=== PATIENT | female | born 1970 | race Caucasian/White ===

== ENCOUNTER 2017-01-02 13:51 | Inpatient (IN) | payer OTHER ==
[~2017-01-02] VITALS: Ht 157.5 cm; Wt 59.0 kg
[~2017-01-02 13:51] MED LIST: APIDRA100 UNIT/1 SQ; ASPIR 8181 MG PO; FLEXERIL 10 MG10 MG PO; FLOVENT DISKUS50 MCG INH; IBUPROFEN800 MG PO; IMDUR ER TAB 6060 MG PO; KLONOPIN TAB 00.5 MG PO; LEVEMIR100 UNIT/1 SC; LEVEMIR100 UNIT/1 SQ; METFORMIN HCL500 MG PO; MONTELUKAST SOD10 MG PO; NEURONTIN800 MG PO; NITRO SL; NORCO 5-325 TA1 EACH PO; NOVOLOG 10100 UNITS/ SC; NOVOLOG 10100 UNITS1 INJ; PROTONIX40 MG PO; PROVENTIL HFA 61 INH INH; SYMBICORT 160-1 INHA INH; VENTOLIN/PROVE0.5 ML INH; ZYRTEC10 M3 PO
[2017-01-02 15:30] LABS: HEMOGLOBIN 16.2 gm/dl (12.3-15.3); RED BLOOD COUNT 4.98 M/UL (4.00-5.10); WHITE BLOOD COUNT 18.2 K/UL (4.5-11.0)
[2017-01-02] MEDS ORDERED: ASPIR 8181 MG PO (20:17)
[2017-01-02] MEDS ORDERED: APIDRA100 UNIT/1 SQ (20:18)
[2017-01-02] MEDS ORDERED: ZYRTEC10 M3 PO (20:18)
[2017-01-02] MEDS ORDERED: SYMBICORT 160-1 INHA INH (20:19)
[2017-01-02] MEDS ORDERED: VENTOLIN HFA 66.7 GM INH (20:20)
[2017-01-02] MEDS ORDERED: FLONASE 0.05% N16 GM (20:21)
[2017-01-02] MEDS ORDERED: METFORMIN HCL500 MG PO (20:21)
[2017-01-02] MEDS ORDERED: IMDUR ER TAB 6060 MG PO (20:22)
[2017-01-03] MEDS ORDERED: LANTUS INS100 UTS/M1 SQ (03:05)
[2017-01-03] MEDS ORDERED: PERCOCET 5/325 T1 EA PO (03:06)
[2017-01-03 05:55] LABS: HEMOGLOBIN 13.9 gm/dl (12.3-15.3); RED BLOOD COUNT 4.22 M/UL (4.00-5.10); WHITE BLOOD COUNT 12.4 K/UL (4.5-11.0)
== END 2017-01-04 00:12 | disposition left against medical advice (07) | DRG 683 ==
LOC: ER1 13:51 → ZEROF 17:40 → M/S 19:40
PROVIDERS: Preventive Medicine Occupational Medicine; ADMIT Internal Medicine
DX: N17.9 Acute kidney failure, unspecified (principal); N30.00 Acute cystitis without hematuria; E87.2 Acidosis; E86.0 Dehydration; E11.65 Type 2 diabetes mellitus with hyperglycemia; J44.9 Chronic obstructive pulmonary disease, unspecified; B18.2 Chronic viral hepatitis C; K21.9 Gastro-esophageal reflux disease without esophagitis; R63.0 Anorexia; Z68.23 Body mass index [BMI] 23.0-23.9, adult; F17.200 Nicotine dependence, unspecified, uncomplicated; Z79.84 Long term (current) use of oral hypoglycemic drugs; Z79.82 Long term (current) use of aspirin; Z79.1 Long term (current) use of non-steroidal anti-inflammatories (NSAID); Z79.899 Other long term (current) drug therapy; Z88.3 Allergy status to other anti-infective agents; Z88.5 Allergy status to narcotic agent; Z88.6 Allergy status to analgesic agent; Z98.51 Tubal ligation status; Z98.890 Other specified postprocedural states; Z82.49 Family history of ischemic heart disease and other diseases of the circulatory system; Z80.9 Family history of malignant neoplasm, unspecified
CPT/HCPCS: 36415; 36600; 71010; 80053; 81001; 82009; 82150; 82550; 82553; 82803; 82947; 82962; 83036; 83605; 83690; 83874; 84484; 85025; 87040; 87070; 87086; 87205; 94640; 94664; 96374; 96375; 99291; J0696; J2405; J7030; J7050

== ENCOUNTER 2020-11-15 12:40 | Emergency (ER) | payer OTHER ==
[~2020-11-15 12:40] MED LIST changes: +ACID CONTROLLER20 MG PO; +ALBUTEROL2.5 MG/3 M INH; +ASPIRIN325 MG PO; +CELEBREX 200MG200 MG PO; +CLINDAMYCIN HC150 MG PO; +FLONASE 0.05% N16 GM; +HUMULIN R100 UNIT/1 INJ; +LANTUS INS100 UTS/M1 SQ; +LIORESAL TAB 1010 MG PO; +LIPITOR TAB 1010 MG PO; -NEURONTIN800 MG PO; +PERCOCET 5/325 T1 EA PO; +PREDNISONE20 MG PO; +TRESIBA FL100 UNIT/1 SQ; +VITAMIN D350 MCG PO
[2020-11-16] MEDS ORDERED: NEURONTIN600 MG PO (09:36)
[2020-11-16] MEDS ORDERED: HYDROCODON-ACE1 EAC6 PO (16:28)
[2020-11-16] MEDS ORDERED: PAROXETINE HCL40 MG PO (16:33)
[2020-11-16] MEDS ORDERED: SUMATRIPTAN SUC50 MG PO (16:35)
[2020-11-16] MEDS ORDERED: SYMBICORT 16010.2 GM INH (16:36)
[2020-11-16] MEDS ORDERED: VENTOLIN HFA 66.7 GM INH (16:37)
[2020-11-16] MEDS ORDERED: VITAMIN D350 MC3 PO (16:38)
[2020-11-16] MEDS ORDERED: SINGULAIR10 MG PO (18:56)
[2020-11-16] MEDS ORDERED: PEPCID20 MG PO (18:57)
== END 2020-11-15 16:30 | disposition left against medical advice (07) ==
LOC: ER1 12:40
DX: Z53.21 Procedure and treatment not carried out due to patient leaving prior to being seen by health care provider (principal)

== ENCOUNTER 2020-11-16 07:08 | Observation (INO) | payer OTHER ==
[~2020-11-16] VITALS: Ht 157.5 cm; Wt 65.8 kg
[2020-11-16 09:30] LABS: HEMOGLOBIN 11.6 gm/dl (12.3-15.3); RED BLOOD COUNT 3.82 M/UL (4.00-5.10); WHITE BLOOD COUNT 7.9 K/UL (4.5-11.0)
[2020-11-16] MEDS ORDERED: NEURONTIN600 MG PO (09:36)
[2020-11-16 10:45] LABS: BUN/CREATININE RATIO 11 (0-10)
[2020-11-16] MEDS ORDERED: HYDROCODON-ACE1 EAC6 PO (16:28)
[2020-11-16] MEDS ORDERED: PAROXETINE HCL40 MG PO (16:33)
[2020-11-16] MEDS ORDERED: SUMATRIPTAN SUC50 MG PO (16:35)
[2020-11-16] MEDS ORDERED: SYMBICORT 16010.2 GM INH (16:36)
[2020-11-16] MEDS ORDERED: VENTOLIN HFA 66.7 GM INH (16:37)
[2020-11-16] MEDS ORDERED: VITAMIN D350 MC3 PO (16:38)
[2020-11-16] MEDS ORDERED: SINGULAIR10 MG PO (18:56)
[2020-11-16] MEDS ORDERED: PEPCID20 MG PO (18:57)
[2020-11-17] MEDS ORDERED: FAMOTIDINE20 MG PO (08:18)
[2020-11-17] MEDS ORDERED: TRESIBA FLEXTOUCH SC (08:26)
[2020-11-17 09:35] LABS: HEMOGLOBIN 10.1 gm/dl (12.3-15.3); RED BLOOD COUNT 3.39 M/UL (4.00-5.10)
[2020-11-17] MEDS ORDERED: ADMELOG SO100 UNIT/1 SC (09:49)
--- NOTE | 2020-11-17 10:44 | NUR ---
11/17/20 1040 PATIENT AMBULATING IN HALLWAY WITH VISITOR, REMINDED PATIENT OF THIS BEING A NON SMOKING FACILTY, STATED "IM GOING TO GO SMOKE ANYWAYS"
[2020-11-17] MEDS ORDERED: PROTONIX40 MG PO (12:34)
[2020-11-17] MEDS ORDERED: ASPIRIN EC81 MG PO (18:56)
[2020-11-17] MEDS ORDERED: VENTOLIN HFA 66.7 GM INH (20:20)
[2020-11-18 08:14] LABS: COMPLEMENT C3, SERUM 127 mg/dL (82-167); COMPLEMENT C4, SERUM 33 mg/dL (12-38); RHEUMATOID ARTHRITIS FACTOR <10.0 IU/mL (0.0-13.9)
== END 2020-11-17 12:27 | disposition home or self-care (01) ==
LOC: ER1 07:08 → CDU 14:49 → MED SURG 4 19:28
PROVIDERS: Emergency Medicine; ADMIT Internal Medicine
DX: L95.9 Vasculitis limited to the skin, unspecified (principal); E11.40 Type 2 diabetes mellitus with diabetic neuropathy, unspecified; K21.9 Gastro-esophageal reflux disease without esophagitis; J44.9 Chronic obstructive pulmonary disease, unspecified; E11.22 Type 2 diabetes mellitus with diabetic chronic kidney disease; N18.9 Chronic kidney disease, unspecified; F17.219 Nicotine dependence, cigarettes, with unspecified nicotine-induced disorders; B19.20 Unspecified viral hepatitis C without hepatic coma; M54.9 Dorsalgia, unspecified; Z88.5 Allergy status to narcotic agent; Z82.3 Family history of stroke; Z20.822 Contact with and (suspected) exposure to COVID-19
CPT/HCPCS: 36415; 70450; 71045; 80053; 81001; 82550; 82553; 82947; 82962; 83605; 83690; 83735; 84484; 85025; 85610; 85730; 86021; 86160; 86162; 86431; 87040; 87081; 87880; 96372; 96374; 99285; C9113; G0378; J1650; J7030; U0002

== ENCOUNTER → 2021-01-17 | Outpatient (CLI) | payer OTHER ==
[~2021-01-17] MED LIST changes: +ADMELOG SO100 UNIT/1 SC; +ASPIRIN EC81 MG PO; +FAMOTIDINE20 MG PO; +HYDROCODON-ACE1 EAC6 PO; +NEURONTIN600 MG PO; +PAROXETINE HCL40 MG PO; +PEPCID20 MG PO; +SINGULAIR10 MG PO; +SUMATRIPTAN SUC50 MG PO; +SYMBICORT 16010.2 GM INH; +TRESIBA FLEXTOUCH SC; +VENTOLIN HFA 66.7 GM INH; +VITAMIN D350 MC3 PO
[2021-01-17 13:07] LABS: HEMOGLOBIN 10.2 gm/dl (12.3-15.3); RED BLOOD COUNT 3.49 M/UL (4.00-5.10); WHITE BLOOD COUNT 7.8 K/UL (4.5-11.0)
== END ==
LOC: LAB 11:23
PROVIDERS: Internal Medicine
DX: N18.9 Chronic kidney disease, unspecified (principal)
CPT/HCPCS: 36415; 80069; 81001; 82570; 83970; 84156; 85027

== ENCOUNTER → 2021-01-18 | Outpatient (CLI) | payer OTHER | LOC: WCC 08:15 | DX: E10.622 Type 1 diabetes mellitus with other skin ulcer (principal); L97.222 Non-pressure chronic ulcer of left calf with fat layer exposed; L97.212 Non-pressure chronic ulcer of right calf with fat layer exposed; E10.22 Type 1 diabetes mellitus with diabetic chronic kidney disease; N18.9 Chronic kidney disease, unspecified; J44.9 Chronic obstructive pulmonary disease, unspecified; E10.42 Type 1 diabetes mellitus with diabetic polyneuropathy; I50.9 Heart failure, unspecified; R60.0 Localized edema; B18.2 Chronic viral hepatitis C; Z79.4 Long term (current) use of insulin; Z79.899 Other long term (current) drug therapy; Z79.51 Long term (current) use of inhaled steroids; Z79.891 Long term (current) use of opiate analgesic; F17.200 Nicotine dependence, unspecified, uncomplicated | CPT/HCPCS: G0463 ==

== ENCOUNTER → 2021-01-25 | Outpatient (CLI) | payer OTHER | LOC: WCC 15:30 | DX: E10.622 Type 1 diabetes mellitus with other skin ulcer (principal); L97.222 Non-pressure chronic ulcer of left calf with fat layer exposed; L97.212 Non-pressure chronic ulcer of right calf with fat layer exposed; I13.0 Hypertensive heart and chronic kidney disease with heart failure and stage 1 through stage 4 chronic kidney disease, or unspecified chronic kidney disease; E10.22 Type 1 diabetes mellitus with diabetic chronic kidney disease; N18.9 Chronic kidney disease, unspecified; I50.9 Heart failure, unspecified; E10.42 Type 1 diabetes mellitus with diabetic polyneuropathy; J44.9 Chronic obstructive pulmonary disease, unspecified; B18.2 Chronic viral hepatitis C; F17.200 Nicotine dependence, unspecified, uncomplicated; R60.0 Localized edema; Z88.1 Allergy status to other antibiotic agents; Z88.5 Allergy status to narcotic agent; Z88.8 Allergy status to other drugs, medicaments and biological substances; Z79.891 Long term (current) use of opiate analgesic; Z79.899 Other long term (current) drug therapy ==

== ENCOUNTER → 2021-02-03 | Outpatient (CLI) | payer OTHER | LOC: WCC 11:00 | DX: E10.622 Type 1 diabetes mellitus with other skin ulcer (principal); L97.212 Non-pressure chronic ulcer of right calf with fat layer exposed; L97.222 Non-pressure chronic ulcer of left calf with fat layer exposed; I13.0 Hypertensive heart and chronic kidney disease with heart failure and stage 1 through stage 4 chronic kidney disease, or unspecified chronic kidney disease; E10.22 Type 1 diabetes mellitus with diabetic chronic kidney disease; N18.9 Chronic kidney disease, unspecified; I50.9 Heart failure, unspecified; E10.42 Type 1 diabetes mellitus with diabetic polyneuropathy; R60.0 Localized edema; J44.9 Chronic obstructive pulmonary disease, unspecified; B18.2 Chronic viral hepatitis C; F17.210 Nicotine dependence, cigarettes, uncomplicated; Z88.1 Allergy status to other antibiotic agents; Z88.5 Allergy status to narcotic agent; Z88.8 Allergy status to other drugs, medicaments and biological substances; Z79.899 Other long term (current) drug therapy ==

== ENCOUNTER → 2021-02-28 | Outpatient (CLI) | payer OTHER | LOC: WCC 11:12 | DX: E11.621 Type 2 diabetes mellitus with foot ulcer (principal); L97.229 Non-pressure chronic ulcer of left calf with unspecified severity; L97.212 Non-pressure chronic ulcer of right calf with fat layer exposed; J44.9 Chronic obstructive pulmonary disease, unspecified; E11.22 Type 2 diabetes mellitus with diabetic chronic kidney disease; I13.10 Hypertensive heart and chronic kidney disease without heart failure, with stage 1 through stage 4 chronic kidney disease, or unspecified chronic kidney disease; E11.42 Type 2 diabetes mellitus with diabetic polyneuropathy; N18.9 Chronic kidney disease, unspecified; K73.9 Chronic hepatitis, unspecified; Z79.4 Long term (current) use of insulin | CPT/HCPCS: 97597 ==

== ENCOUNTER → 2021-05-24 | Outpatient (CLI) | payer OTHER | LOC: NM 08:53 | DX: R10.11 Right upper quadrant pain (principal); R10.84 Generalized abdominal pain; R12 Heartburn; R19.7 Diarrhea, unspecified | CPT/HCPCS: 78226; A9537 ==

== ENCOUNTER → 2021-07-11 | Outpatient (CLI) | payer OTHER ==
[2021-07-11 15:51] LABS: HEMOGLOBIN 11.7 gm/dl (12.3-15.3); RED BLOOD COUNT 3.68 M/UL (4.00-5.10); WHITE BLOOD COUNT 10.5 K/UL (4.5-11.0)
== END ==
LOC: LAB 14:10
PROVIDERS: Internal Medicine
DX: N18.4 Chronic kidney disease, stage 4 (severe) (principal)
CPT/HCPCS: 36415; 80069; 82570; 83970; 84156; 85027

== ENCOUNTER 2021-09-05 08:40 | Inpatient (IN) | payer OTHER ==
[~2021-09-05] VITALS: Ht 157.5 cm; Wt 63.5 kg
[~2021-09-05 08:40] MED LIST changes: -ADMELOG SO100 UNIT/1 SC; +HUMALOG100 UNIT/3 SQ; -NEURONTIN600 MG PO; +NEURONTIN800 MG PO; +SUMATRIPTAN SU100 MG PO; -SUMATRIPTAN SUC50 MG PO
[2021-09-05 09:30] LABS: HEMOGLOBIN 11.3 gm/dl (12.3-15.3); RED BLOOD COUNT 3.7 M/UL (4.00-5.10); WHITE BLOOD COUNT 12.4 K/UL (4.5-11.0)
[2021-09-05 09:54] LABS: BUN/CREATININE RATIO 16 (0-10)
[2021-09-05] MEDS ORDERED: JARDIANCE25 MG PO (13:52)
[2021-09-05] MEDS ORDERED: TOPAMAX25 MG PO (13:52)
[2021-09-05] MEDS ORDERED: PERCOCET 10-321 EACH PO (13:52)
[2021-09-05] MEDS ORDERED: LEVEMIR FL100 UNIT/1 SQ (13:54)
[2021-09-06 07:13] LABS: HEMOGLOBIN 9.7 gm/dl (12.3-15.3)
[2021-09-06 07:16] LABS: RED BLOOD COUNT 3.22 M/UL (4.00-5.10)
[2021-09-07 07:37] LABS: WHITE BLOOD COUNT 19.1 K/UL (4.5-11.0)
[2021-09-07 07:51] LABS: RED BLOOD COUNT 2.88 M/UL (4.00-5.10)
[2021-09-09 06:38] LABS: HEMOGLOBIN 10.6 gm/dl (12.3-15.3)
[2021-09-09 06:46] LABS: RED BLOOD COUNT 3.42 M/UL (4.00-5.10); WHITE BLOOD COUNT 13.8 K/UL (4.5-11.0)
--- NOTE | 2021-09-09 14:35 | NUR ---
PT ROOM AIR SAT 98%
[2021-09-09] MEDS ORDERED: PREDNISONE5 M1 PO (15:13)
== END 2021-09-09 17:25 | disposition home or self-care (01) | DRG 871 ==
LOC: ER1 08:40 → CDU 10:58 → MED SURG 4 17:39
PROVIDERS: Emergency Medicine; ADMIT Internal Medicine
PROC: 8E0ZXY6 Isolation (ICD-10-PCS; principal; 2021-09-05)
PROC: XW033E5 Introduction of Remdesivir Anti-infective into Peripheral Vein, Percutaneous Approach, New Technology Group 5 (ICD-10-PCS; 2021-09-05)
PROC: 3E0333Z Introduction of Anti-inflammatory into Peripheral Vein, Percutaneous Approach (ICD-10-PCS; 2021-09-05)
PROC: XW033H5 Introduction of Tocilizumab into Peripheral Vein, Percutaneous Approach, New Technology Group 5 (ICD-10-PCS; 2021-09-05)
DX: A41.89 Other specified sepsis (principal); U07.1 COVID-19; J96.01 Acute respiratory failure with hypoxia; J15.9 Unspecified bacterial pneumonia; E87.2 Acidosis; N17.9 Acute kidney failure, unspecified; F11.20 Opioid dependence, uncomplicated; F17.200 Nicotine dependence, unspecified, uncomplicated; E11.40 Type 2 diabetes mellitus with diabetic neuropathy, unspecified; M54.9 Dorsalgia, unspecified; G89.29 Other chronic pain; I25.10 Atherosclerotic heart disease of native coronary artery without angina pectoris; B18.2 Chronic viral hepatitis C; E11.65 Type 2 diabetes mellitus with hyperglycemia; I11.0 Hypertensive heart disease with heart failure; R65.20 Severe sepsis without septic shock; I50.810 Right heart failure, unspecified; T38.0X5A Adverse effect of glucocorticoids and synthetic analogues, initial encounter; K21.9 Gastro-esophageal reflux disease without esophagitis; D64.9 Anemia, unspecified; Z98.890 Other specified postprocedural states; Z88.5 Allergy status to narcotic agent; Z88.8 Allergy status to other drugs, medicaments and biological substances; Z79.4 Long term (current) use of insulin; Z23 Encounter for immunization
CPT/HCPCS: ECHO; 0240U; 36415; 36600; 71045; 80048; 80053; 81001; 81003; 82009; 82550; 82553; 82728; 82803; 82962; 83605; 83874; 83880; 84484; 84702; 85025; 85027; 85379; 85652; 86140; 87040; 93005; 93306; 94640; 94664; 94760; 96374; 96375; 99285; J0248; J0696; J1100; J1650; J7030